=== PATIENT | male | born 1975 | race Two or more races ===

== ENCOUNTER 2017-06-02 12:25 | Inpatient (IN) | payer BC ==
[~2017-06-02] VITALS: Ht 177.8 cm; Wt 73.0 kg
--- NOTE | 2017-06-02 13:51 | History & Physical ---
History and Physical History & Physicial Dictated for Int Med -Dr Vázquez no. [id number] ELISSA CAMP Jun 02, 2017 13:51
[2017-06-02] MEDS ORDERED: LORazepam Inj 2mg/ml 1ml IV PRN ×2 (15:00→19:00)
[2017-06-02] MEDS ORDERED: NS w/KCl 20mEq 1,000 ML IV SCH (15:00)
[2017-06-02 15:22] LABS: BASOPHILS % (AUTO) 0.7 % (0.0-2.0); EOSINOPHILS % (AUTO) 0.6 % (0.0-3.0); LYMPHOCYTES % (AUTO) 11.3 % (20.0-45.0); MEAN CORPUSCULAR HEMOGLOBIN 32.9 PG (27.0-31.0); MEAN CORPUSCULAR HGB CONC 35.9 G/DL (32.0-36.0); MEAN CORPUSCULAR VOLUME 92 FL (80-99); MEAN PLATELET VOLUME 8.1 FL (6.5-10.1); MONOCYTES % (AUTO) 8.7 % (1.0-10.0); NEUTROPHILS % (AUTO) 78.7 % (45.0-75.0); PLATELET COUNT 212 K/UL (150-450); RED BLOOD COUNT 4.41 M/UL (4.70-6.10)
[2017-06-02 15:28] LABS: INR 1.2 (0.9-1.1); PROTHROMBIN TIME 12.1 SEC (9.30-11.50)
[2017-06-02 15:41] LABS: ALANINE AMINOTRANSFERASE 14 U/L (3-41); ALBUMIN/GLOBULIN RATIO 2.3 (1.0-2.7); ANION GAP 14 (5-15); ASPARTATE AMINO TRANSFERASE 29 U/L (5-40); CALCIUM 9.1 mg/dL (8.6-10.2); CARBON DIOXIDE 27 mEQ/L (20-30); CHLORIDE 94 mEQ/L (98-107); CREATININE 0.9 mg/dL (0.7-1.2); GLOMERULAR FILTRATION RATE > 60 mL/min (>60); HEMOLYSIS 5; POTASSIUM 4.5 mEQ/L (3.4-4.9); SODIUM 135 mEQ/L (135-145); TOTAL PROTEIN 6.3 g/dL (6.6-8.7)
[2017-06-02 16:31] LABS: BILIRUBIN,DIRECT 0.2 mg/dL (0.1-0.3)
[2017-06-02 16:46] VITALS: BP 125/74
[2017-06-02] MEDS: NS w/KCl 20mEq 1,000 ML IV SCH (17:39)
--- NOTE | 2017-06-02 18:46 | History and Physical Report ---
DATE OF ADMISSION: 06/02/2017 CHIEF COMPLAINT: The patient is a 42-year-old white male who presents with chief complaint of seizure. HISTORY OF PRESENT ILLNESS: The patient denies medical problems. The patient states he was on "bowel cleanse." The patient was drinking water with vitamins; no solid foods. The patient is interviewed in the presence of his significant other. According to the significant other, the patient had a seizure this morning about 3 a.m. It last about two minutes. It was generalized in nature. The patient bite the left side of his tongue and was bleeding. The patient initially presented to [facility] emergency room. The patient was transferred to [facility] for insurance purposes. The patient is admitted for new onset seizure and hyponatremia. REVIEW OF SYSTEMS: Constitutional: The patient denies weight loss or weight gain. The patient denies fever or chills. Heent: The patient denies ear or throat pain. The patient denies headache. Cardiovascular: The patient denies palpitations or chest pain. Chest: The patient denies wheezes or shortness of breath. Abdomen: The patient denies nausea, vomiting, diarrhea, or constipation. Genitourinary: The patient denies dysuria or increased frequency of urination. Neuromuscular: The patient complains of seizures as above. The patient denies generalized weakness. PAST MEDICAL HISTORY: The patient denies. PAST SURGICAL HISTORY: The patient denies. CURRENT MEDICATIONS: Other than colon cleanse as above, the patient denies. ALLERGIES: No known drug allergies. SOCIAL HISTORY: The patient is single however has a significant other. The patient works in the entertainment field. The patient denies tobacco use having quit in December 2016. The patient admits to occasional alcohol use. FAMILY HISTORY: Negative for diabetes or coronary artery disease. PHYSICAL EXAMINATION: VITAL SIGNS: Temperature 96.6, respirations 20, pulse 75, blood pressure 120 to 143 over 65 to 73. GENERAL: The patient is well-developed and well-nourished white male, in no apparent distress. HEENT: Eyes, pupils are equal and responsive to light and accommodation. Extraocular movements are intact. NECK: Supple. No lymphadenopathy. CHEST: Lungs are clear to auscultation bilaterally without wheezes or rales. CARDIOVASCULAR: Regular rate. S1 and S2 are normal without murmurs, rubs, or gallops. ABDOMEN: Soft, nontender, and nondistended. Positive bowel sounds. No evidence of hepatosplenomegaly. Currently, no rebound or guarding noted. EXTREMITIES: Negative for clubbing, cyanosis, or edema. RECTAL/GENITAL: Refused. NEUROLOGIC: Cranial nerves II to XII are grossly intact without focal deficits. Motor strength is 5/5 bilaterally. Deep tendon reflexes 2+ plantar. LABORATORY STUDIES: From [place], WBC 5.9, hemoglobin 14.0, hematocrit 39.3, platelets 190,000. Sodium 122 (decreased), potassium 3.2( decreased) chloride 88, CO2 21, BUN 7, creatinine 1.07, glucose 131. Total bilirubin slightly elevated at 1.7. The rest laboratory studies within normal limits. A CT scan without contrast, revealed 1.5 centimeter lobular focus of mildly increased density which is consistent with meningioma. An MRI of the brain was recommended. ASSESSMENT: This is a 42-year-old white male: 1. New onset seizure. 2. Hyponatremia. 3. Hypokalemia. TREATMENT: 1. Seizure. A Neurology consultation was obtained with Dr. Block. An EEG of the brain is pending. MRI of the brain is pending. We will follow recommendations of Neurology. 2. Hyponatremia/hypokalemia, the patient is currently receiving intravenous fluids. Yadiel Husain M.D. DR: Gay JOB#: [id number] CC: KAROLYN
[2017-06-02 20:24] VITALS: BP 140/79
[2017-06-02 22:28] LABS: APPEARANCE,URINE CLEAR; KETONES,URINE 2+ (NEGATIVE); LEUKOCYTE ESTERASE ,URINE NEGATIVE (NEGATIVE); NITRITE,URINE NEGATIVE (NEGATIVE); PH,URINE 7 (4.5-8.0); PROTEIN,URINE NEGATIVE (NEGATIVE); UROBILINOGEN,URINE NORMAL MG/DL (0.0-1.0)
[2017-06-02 23:54] VITALS: BP 114/71
[2017-06-03 04:00] VITALS: BP 119/79
[2017-06-03] MEDS: NS w/KCl 20mEq 1,000 ML IV SCH (07:08)
[2017-06-03 07:11] LABS: ANION GAP 14 (5-15); BASOPHILS % (AUTO) 0.9 % (0.0-2.0); CALCIUM 8.8 mg/dL (8.6-10.2); CARBON DIOXIDE 24 mEQ/L (20-30); CHLORIDE 98 mEQ/L (98-107); CREATININE 0.9 mg/dL (0.7-1.2); GLOMERULAR FILTRATION RATE > 60 mL/min (>60); HEMOLYSIS 6; LYMPHOCYTES % (AUTO) 30.3 % (20.0-45.0); MEAN CORPUSCULAR HEMOGLOBIN 33.4 PG (27.0-31.0); MEAN CORPUSCULAR HGB CONC 36.2 G/DL (32.0-36.0); MEAN CORPUSCULAR VOLUME 92 FL (80-99); MEAN PLATELET VOLUME 8.3 FL (6.5-10.1); MONOCYTES % (AUTO) 11.6 % (1.0-10.0); NEUTROPHILS % (AUTO) 55.3 % (45.0-75.0); PLATELET COUNT 187 K/UL (150-450); POTASSIUM 4.2 mEQ/L (3.4-4.9); RED CELL DISTRIBUTION WIDTH 10.2 % (11.6-14.8); SODIUM 136 mEQ/L (135-145); WHITE BLOOD COUNT 6.2 K/UL (4.8-10.8)
[2017-06-03 07:15] LABS: PHOSPHORUS 3.3 mg/dL (2.5-4.8)
[2017-06-03 08:06] VITALS: BP 123/68
--- NOTE | 2017-06-03 08:50 | Internal Med Progress Note ---
Subjective Date of Service: Jun 03, 2017 Physician Name Yadiel Camp Attending Physician Nilson Vázquez MD Current Medications Medications (Trade) Dose Ordered Sig/Brian Route PRN Reason Start Time Stop Time Status Last Admin Dose Admin Acetaminophen (Tylenol) 650 mg Q4H PRN ORAL Mild Pain/Temp > 100.5 06/02/17 17:45 07/02/17 17:44 Levetiracetam (Keppra) 500 mg Q12HR ORAL 06/02/17 21:00 07/02/17 20:59 06/02/17 22:19 Lorazepam (Ativan 2mg/ml 1ml) 2 mg Q4H PRN IV For Seizures 06/02/17 19:00 06/09/17 18:59 Sodium Chloride (NS w/KCl 20mEq) 1,000 ml @ 75 mls/hr [id number] IV 06/02/17 17:30 07/02/17 17:29 06/03/17 07:08 Temazepam (Restoril) 15 mg HSPRN PRN ORAL Insomnia 06/03/17 00:30 06/10/17 00:29 06/03/17 00:37 Allergies: Coded Allergies: No Known Allergies (Unverified , 06/02/17) ROS Limited/Unobtainable: No Constitutional: Reports: no symptoms HEENT: Reports: no symptoms Cardiovascular: Reports: no symptoms Respiratory: Reports: no symptoms Gastrointestinal/Abdominal: Reports: no symptoms Genitourinary: Reports: no symptoms Neurologic/Psychiatric: Reports: no symptoms Subjective 42 YO M admitted with new onset seizure. Await MRI brain and EEG. Await neurology consult. Cover for Int Med-Dr Vázquez. Objective Last Vital Signs Date Time Temp Pulse Resp B/P Pulse Ox O2 Delivery O2 Flow Rate FiO2 06/03/17 08:06 97.7 65 20 123/68 100 Room Air General Appearance: WD/WN, no apparent distress, alert EENT: PERRL/EOMI, normal ENT inspection Neck: non-tender, normal alignment, supple Cardiovascular: normal peripheral pulses, normal rate, regular rhythm, no gallop/murmur, no JVD Respiratory/Chest: chest wall non-tender, lungs clear, normal breath sounds, no respiratory distress, no accessory muscle use Abdomen: normal bowel sounds, non tender, soft, no organomegaly, no mass Extremities: normal range of motion, non-tender Neurologic: water/wastewater engineer II-XII grossly normal, no motor/sensory deficits, alert, oriented x 3, responsive Skin: normal pigmentation, warm/dry Laboratory Tests Test 06/02/17 14:50 06/02/17 19:51 06/03/17 04:55 White Blood Count 10.0 K/UL (4.8-10.8) 6.2 K/UL (4.8-10.8) Red Blood Count 4.41 M/UL (4.70-6.10) L 4.30 M/UL (4.70-6.10) L Hemoglobin 14.5 G/DL (14.2-18.0) 14.4 G/DL (14.2-18.0) Hematocrit 40.4 % (42.0-52.0) L 39.8 % (42.0-52.0) L Mean Corpuscular Volume 92 FL (80-99) 92 FL (80-99) Mean Corpuscular Hemoglobin 32.9 PG (27.0-31.0) H 33.4 PG (27.0-31.0) H Mean Corpuscular Hemoglobin Concent 35.9 G/DL (32.0-36.0) 36.2 G/DL (32.0-36.0) H Red Cell Distribution Width 10.0 % (11.6-14.8) L 10.2 % (11.6-14.8) L Platelet Count 212 K/UL (150-450) 187 K/UL (150-450) Mean Platelet Volume 8.1 FL (6.5-10.1) 8.3 FL (6.5-10.1) Neutrophils (%) (Auto) 78.7 % (45.0-75.0) H 55.3 % (45.0-75.0) Lymphocytes (%) (Auto) 11.3 % (20.0-45.0) L 30.3 % (20.0-45.0) Monocytes (%) (Auto) 8.7 % (1.0-10.0) 11.6 % (1.0-10.0) H Eosinophils (%) (Auto) 0.6 % (0.0-3.0) 2.0 % (0.0-3.0) Basophils (%) (Auto) 0.7 % (0.0-2.0) 0.9 % (0.0-2.0) Prothrombin Time 12.1 SEC (9.30-11.50) H Prothromb Time International Ratio 1.2 (0.9-1.1) H Activated Partial Thromboplast Time 26 SEC (23-33) Sodium Level 135 mEQ/L (135-145) 136 mEQ/L (135-145) Potassium Level 4.5 mEQ/L (3.4-4.9) 4.2 mEQ/L (3.4-4.9) Chloride Level 94 mEQ/L (98-107) L 98 mEQ/L (98-107) Carbon Dioxide Level 27 mEQ/L (20-30) 24 mEQ/L (20-30) Anion Gap 14 (5-15) 14 (5-15) Blood Urea Nitrogen 6 mg/dL (7-23) L 5 mg/dL (7-23) L Creatinine 0.9 mg/dL (0.7-1.2) 0.9 mg/dL (0.7-1.2) Estimat Glomerular Filtration Rate > 60 mL/min (>60) > 60 mL/min (>60) Glucose Level 93 mg/dL (74-106) 99 mg/dL (74-106) Calcium Level 9.1 mg/dL (8.6-10.2) 8.8 mg/dL (8.6-10.2) Total Bilirubin 1.2 mg/dL (0.0-1.2) Direct Bilirubin 0.2 mg/dL (0.1-0.3) Aspartate Amino Transf (AST/SGOT) 29 U/L (5-40) Alanine Aminotransferase (ALT/SGPT) 14 U/L (3-41) Alkaline Phosphatase 49 U/L (40-129) Total Protein 6.3 g/dL (6.6-8.7) L Albumin 4.4 g/dL (3.5-5.2) Globulin 1.9 g/dL Albumin/Globulin Ratio 2.3 (1.0-2.7) Urine Color Pale yellow Urine Appearance Clear Urine pH 7 (4.5-8.0) Urine Specific [place] 1.005 (1.005-1.035) Urine Protein Negative (NEGATIVE) Urine Glucose (UA) Negative (NEGATIVE) Urine Ketones 2+ (NEGATIVE) H Urine Occult Blood Negative (NEGATIVE) Urine Nitrite Negative (NEGATIVE) Urine Bilirubin Negative (NEGATIVE) Urine Urobilinogen Normal MG/DL (0.0-1.0) Urine Leukocyte Esterase Negative (NEGATIVE) Phosphorus Level 3.3 mg/dL (2.5-4.8) Magnesium Level 2.0 mg/dL (1.7-2.5) Intake and Output 06/02/17 06/03/17 19:00 07:00 Intake Total 435 ml 525 ml Balance 435 ml 525 ml Intake Oral 360 ml IV Total 75 ml 525 ml # Voids 2 2 Assessment/Plan Problem List: (1) Hypokalemia Assessment & Plan: Resolved on IV fluid (2) Hyponatremia Assessment & Plan: Resolved (3) New onset seizure Assessment & Plan: Await neurology consult. Await MRI of brain-possible meningioma on CT from [place]. Await EEG. Cont Keppra Status: progressing YADIEL CAMP Jun 03, 2017 08:50
--- NOTE | 2017-06-03 09:08 | Diagnostic Imaging Report ---
Indication: Cough, seizure Technique: Single portable AP view of the chest. Findings: Comparison: None. The bones and extra pulmonary soft tissues, cardiomediastinal silhouette, pulmonary vasculature and parenchyma, and pleural surfaces are unremarkable. IMPRESSION: Negative portable AP chest.
--- NOTE | 2017-06-03 10:50 | Diagnostic Imaging Report ---
Indications: Seizures Technique: Sagittal and axial T1 weighted fast spin-echo, coronal and axial T2-weighted FLAIR, coronal fast spoiled gradient cordon, axial T2-weighted fat saturated fast spin echo, T2*-weighted gradient echo, and diffusion sequences of the brain were performed prior to IV gadolinium administration. Axial and coronal T1 weighted fast spin-echo, coronal fast spoiled gradient cordon sequences were performed following IV gadolinium administration. Findings: Comparison: None 17 x 15 x 14 mm sharply circumscribed, mildly lobulated mass is present in the posterior medial periphery of the right temporal lobe. It is mildly hypointense on T1-weighted images, centrally hyperintense with a signal void are on T2-weighted images, it demonstrates significant susceptibility artifact on gradient echo images, and demonstrates foci of enhancement on postgadolinium images. Some of these enhancing foci appear vascular. Minimal if any surrounding edema is present. No associated restricted diffusion. No enlarged feeding artery demonstrated. No evidence of additional mass or hemorrhage, other signal abnormality, mass effect, midline shift, hydrocephalus, or increased intracranial pressure. No restricted diffusion. No additional abnormal enhancement. Central vascular flow voids preserved. Mucoperiosteal thickening scattered throughout paranasal sinuses with small polypoid lesion in left maxillary sinus. IMPRESSION: 1.7 cm mass in right temporal lobe with evidence of previous hemorrhage, foci of enhancement. Underlying vascular malformation, particularly cavernous hemangioma must be considered. Neoplasm significantly less likely.
[2017-06-03 11:20] VITALS: BP 132/71
--- NOTE | 2017-06-03 12:12 | Neurology Progress Note ---
Interim History Interim History ROS Limited/Unobtainable: No Objective Physical Exam Last Vital Signs Date Time Temp Pulse Resp B/P Pulse Ox O2 Delivery O2 Flow Rate FiO2 06/03/17 11:20 97.5 54 20 132/71 100 Room Air Laboratory Tests Test 06/02/17 14:50 06/02/17 19:51 06/03/17 04:55 White Blood Count 10.0 K/UL (4.8-10.8) 6.2 K/UL (4.8-10.8) Red Blood Count 4.41 M/UL (4.70-6.10) L 4.30 M/UL (4.70-6.10) L Hemoglobin 14.5 G/DL (14.2-18.0) 14.4 G/DL (14.2-18.0) Hematocrit 40.4 % (42.0-52.0) L 39.8 % (42.0-52.0) L Mean Corpuscular Volume 92 FL (80-99) 92 FL (80-99) Mean Corpuscular Hemoglobin 32.9 PG (27.0-31.0) H 33.4 PG (27.0-31.0) H Mean Corpuscular Hemoglobin Concent 35.9 G/DL (32.0-36.0) 36.2 G/DL (32.0-36.0) H Red Cell Distribution Width 10.0 % (11.6-14.8) L 10.2 % (11.6-14.8) L Platelet Count 212 K/UL (150-450) 187 K/UL (150-450) Mean Platelet Volume 8.1 FL (6.5-10.1) 8.3 FL (6.5-10.1) Neutrophils (%) (Auto) 78.7 % (45.0-75.0) H 55.3 % (45.0-75.0) Lymphocytes (%) (Auto) 11.3 % (20.0-45.0) L 30.3 % (20.0-45.0) Monocytes (%) (Auto) 8.7 % (1.0-10.0) 11.6 % (1.0-10.0) H Eosinophils (%) (Auto) 0.6 % (0.0-3.0) 2.0 % (0.0-3.0) Basophils (%) (Auto) 0.7 % (0.0-2.0) 0.9 % (0.0-2.0) Prothrombin Time 12.1 SEC (9.30-11.50) H Prothromb Time International Ratio 1.2 (0.9-1.1) H Activated Partial Thromboplast Time 26 SEC (23-33) Sodium Level 135 mEQ/L (135-145) 136 mEQ/L (135-145) Potassium Level 4.5 mEQ/L (3.4-4.9) 4.2 mEQ/L (3.4-4.9) Chloride Level 94 mEQ/L (98-107) L 98 mEQ/L (98-107) Carbon Dioxide Level 27 mEQ/L (20-30) 24 mEQ/L (20-30) Anion Gap 14 (5-15) 14 (5-15) Blood Urea Nitrogen 6 mg/dL (7-23) L 5 mg/dL (7-23) L Creatinine 0.9 mg/dL (0.7-1.2) 0.9 mg/dL (0.7-1.2) Estimat Glomerular Filtration Rate > 60 mL/min (>60) > 60 mL/min (>60) Glucose Level 93 mg/dL (74-106) 99 mg/dL (74-106) Calcium Level 9.1 mg/dL (8.6-10.2) 8.8 mg/dL (8.6-10.2) Total Bilirubin 1.2 mg/dL (0.0-1.2) Direct Bilirubin 0.2 mg/dL (0.1-0.3) Aspartate Amino Transf (AST/SGOT) 29 U/L (5-40) Alanine Aminotransferase (ALT/SGPT) 14 U/L (3-41) Alkaline Phosphatase 49 U/L (40-129) Total Protein 6.3 g/dL (6.6-8.7) L Albumin 4.4 g/dL (3.5-5.2) Globulin 1.9 g/dL Albumin/Globulin Ratio 2.3 (1.0-2.7) Urine Color Pale yellow Urine Appearance Clear Urine pH 7 (4.5-8.0) Urine Specific [place] 1.005 (1.005-1.035) Urine Protein Negative (NEGATIVE) Urine Glucose (UA) Negative (NEGATIVE) Urine Ketones 2+ (NEGATIVE) H Urine Occult Blood Negative (NEGATIVE) Urine Nitrite Negative (NEGATIVE) Urine Bilirubin Negative (NEGATIVE) Urine Urobilinogen Normal MG/DL (0.0-1.0) Urine Leukocyte Esterase Negative (NEGATIVE) Phosphorus Level 3.3 mg/dL (2.5-4.8) Magnesium Level 2.0 mg/dL (1.7-2.5) Impression/Recommendations Status: progressing Recommendations #[id number] MARICEL TURCIOS Jun 03, 2017 12:12
--- NOTE | 2017-06-03 12:26 | Consultation ---
History of Present Illness General Date patient seen: Jun 03, 2017 Chief Complaint: seizures Reason for Consultation: inpatient management Present Illness HPI 42 year old male without any PMHx was taken to [facility] with CC of new onset seizures. Pt was transferred to [facility] for further treatment. Allergies: Coded Allergies: No Known Allergies (Unverified , 06/02/17) Patient History Healthcare decision maker Resuscitation status Full Code Advanced Directive on File Review of Systems Constitutional: Reports: no symptoms All Other Systems: negative except mentioned in HPI Physical Exam General Appearance: WD/WN Lines, tubes and drains: peripheral, PICC HEENT: normocephalic, atraumatic Respiratory/Chest: chest wall non-tender, lungs clear Breasts: no masses Cardiovascular/Chest: normal peripheral pulses Abdomen: normal bowel sounds Genitourinary/Rectal: normal genital exam Last 24 Hour Vital Signs Date Time Temp Pulse Resp B/P Pulse Ox O2 Delivery O2 Flow Rate FiO2 06/03/17 11:20 97.5 54 20 132/71 100 Room Air 06/03/17 08:06 97.7 65 20 123/68 100 Room Air 06/03/17 04:00 98.2 80 21 119/79 93 Room Air 06/03/17 04:00 57 06/03/17 00:00 64 06/02/17 23:54 98.5 77 20 114/71 Room Air 06/02/17 20:24 98.6 81 21 140/79 93 Room Air 06/02/17 20:00 67 06/02/17 16:46 97.5 77 20 125/74 98 06/02/17 15:23 80 06/02/17 12:45 98.3 70 20 125/52 Intake and Output 06/02/17 06/03/17 19:00 07:00 Intake Total 435 ml 525 ml Balance 435 ml 525 ml Intake Oral 360 ml IV Total 75 ml 525 ml # Voids 2 2 Laboratory Tests Test 06/02/17 14:50 06/02/17 19:51 06/03/17 04:55 White Blood Count 10.0 K/UL (4.8-10.8) 6.2 K/UL (4.8-10.8) Red Blood Count 4.41 M/UL (4.70-6.10) L 4.30 M/UL (4.70-6.10) L Hemoglobin 14.5 G/DL (14.2-18.0) 14.4 G/DL (14.2-18.0) Hematocrit 40.4 % (42.0-52.0) L 39.8 % (42.0-52.0) L Mean Corpuscular Volume 92 FL (80-99) 92 FL (80-99) Mean Corpuscular Hemoglobin 32.9 PG (27.0-31.0) H 33.4 PG (27.0-31.0) H Mean Corpuscular Hemoglobin Concent 35.9 G/DL (32.0-36.0) 36.2 G/DL (32.0-36.0) H Red Cell Distribution Width 10.0 % (11.6-14.8) L 10.2 % (11.6-14.8) L Platelet Count 212 K/UL (150-450) 187 K/UL (150-450) Mean Platelet Volume 8.1 FL (6.5-10.1) 8.3 FL (6.5-10.1) Neutrophils (%) (Auto) 78.7 % (45.0-75.0) H 55.3 % (45.0-75.0) Lymphocytes (%) (Auto) 11.3 % (20.0-45.0) L 30.3 % (20.0-45.0) Monocytes (%) (Auto) 8.7 % (1.0-10.0) 11.6 % (1.0-10.0) H Eosinophils (%) (Auto) 0.6 % (0.0-3.0) 2.0 % (0.0-3.0) Basophils (%) (Auto) 0.7 % (0.0-2.0) 0.9 % (0.0-2.0) Prothrombin Time 12.1 SEC (9.30-11.50) H Prothromb Time International Ratio 1.2 (0.9-1.1) H Activated Partial Thromboplast Time 26 SEC (23-33) Sodium Level 135 mEQ/L (135-145) 136 mEQ/L (135-145) Potassium Level 4.5 mEQ/L (3.4-4.9) 4.2 mEQ/L (3.4-4.9) Chloride Level 94 mEQ/L (98-107) L 98 mEQ/L (98-107) Carbon Dioxide Level 27 mEQ/L (20-30) 24 mEQ/L (20-30) Anion Gap 14 (5-15) 14 (5-15) Blood Urea Nitrogen 6 mg/dL (7-23) L 5 mg/dL (7-23) L Creatinine 0.9 mg/dL (0.7-1.2) 0.9 mg/dL (0.7-1.2) Estimat Glomerular Filtration Rate > 60 mL/min (>60) > 60 mL/min (>60) Glucose Level 93 mg/dL (74-106) 99 mg/dL (74-106) Calcium Level 9.1 mg/dL (8.6-10.2) 8.8 mg/dL (8.6-10.2) Total Bilirubin 1.2 mg/dL (0.0-1.2) Direct Bilirubin 0.2 mg/dL (0.1-0.3) Aspartate Amino Transf (AST/SGOT) 29 U/L (5-40) Alanine Aminotransferase (ALT/SGPT) 14 U/L (3-41) Alkaline Phosphatase 49 U/L (40-129) Total Protein 6.3 g/dL (6.6-8.7) L Albumin 4.4 g/dL (3.5-5.2) Globulin 1.9 g/dL Albumin/Globulin Ratio 2.3 (1.0-2.7) Urine Color Pale yellow Urine Appearance Clear Urine pH 7 (4.5-8.0) Urine Specific [place] 1.005 (1.005-1.035) Urine Protein Negative (NEGATIVE) Urine Glucose (UA) Negative (NEGATIVE) Urine Ketones 2+ (NEGATIVE) H Urine Occult Blood Negative (NEGATIVE) Urine Nitrite Negative (NEGATIVE) Urine Bilirubin Negative (NEGATIVE) Urine Urobilinogen Normal MG/DL (0.0-1.0) Urine Leukocyte Esterase Negative (NEGATIVE) Phosphorus Level 3.3 mg/dL (2.5-4.8) Magnesium Level 2.0 mg/dL (1.7-2.5) Height (Feet): 5 Height (Inches): 10.00 Weight (Pounds): 161 Medications Current Medications Medications (Trade) Dose Ordered Sig/Brian Route PRN Reason Start Time Stop Time Status Last Admin Dose Admin Acetaminophen (Tylenol) 650 mg Q4H PRN ORAL Mild Pain/Temp > 100.5 06/02/17 17:45 07/02/17 17:44 Levetiracetam (Keppra) 500 mg Q12HR ORAL 06/02/17 21:00 07/02/17 20:59 06/03/17 09:36 Lorazepam (Ativan 2mg/ml 1ml) 2 mg Q4H PRN IV For Seizures 06/02/17 19:00 06/09/17 18:59 Sodium Chloride (NS w/KCl 20mEq) 1,000 ml @ 75 mls/hr [id number] IV 06/02/17 17:30 07/02/17 17:29 06/03/17 07:08 Temazepam (Restoril) 15 mg HSPRN PRN ORAL Insomnia 06/03/17 00:30 06/10/17 00:29 06/03/17 00:37 Assessment/Plan Problem List: (1) New onset seizure ICD Codes: R56.9 - Unspecified convulsions SNOMED: 47912706 (2) Hyponatremia ICD Codes: E87.1 - Hypo-osmolality and hyponatremia SNOMED: 85846807 (3) Hypokalemia ICD Codes: E87.6 - Hypokalemia SNOMED: 47260086 Assessment/Plan w/u in progress Neuro evaluation EEG anti-seizure tads MICHELLE GHOSH Jun 03, 2017 12:26
[2017-06-03 12:58] LABS: BILIRUBIN,DIRECT 0.1 mg/dL (0.1-0.3); CHOLESTEROL/HDL RATIO 3.6 (3.3-4.4); TOTAL PROTEIN 5.9 g/dL (6.6-8.7)
[2017-06-03 15:27] VITALS: BP 116/62
--- NOTE | 2017-06-03 20:45 | Consultation ---
DATE OF CONSULTATION: 06/03/2017 NEUROLOGICAL CONSULTATION REQUESTING PHYSICIAN: Nilson Vázquez M.D. HISTORY OF PRESENT ILLNESS: The patient is a 42-year-old man seen in neurological consultation to evaluate the new onset of seizure activity. According to the patient, for the last five days prior to admission, he was in a "cleansing diet", which consists about 1.5 liters of water and mixed with some herbal powder daily. While asleep next to his girlfriend, he developed generalized clonic-tonic event with tongue biting. Paramedics were called to the scene. He was then taken to [facility] emergency room where he woke up. His blood pressure was stable at 120/65. He was afebrile. He was back to baseline, awake, alert and fully oriented. Her initial laboratory work included normal CBC studies. Electrolyte panel with sodium 122, potassium 3.3, chloride 88, and anion gap of 13. Total bilirubin 1.7. Otherwise normal study. CAT scan of the brain revealed focal high-density area in the right medial temporal lobe along with the , possible meningioma, recommended MRI with contrast for confirmation. The patient was transferred to this facility for further assessment and treatment. Laboratory work on admission revealed a normal CBC, coagulation panel with INR 1.2. Chemistry panel with sodium 135, chloride 94, total bilirubin of 6.3, otherwise normal study. Urinalysis, 2+ ketones. Coagulation panel with INR 1.2. His vital signs remained stable. He was afebrile. Chest x-ray, normal study. MRI of the brain with and without contrast was obtained, this revealed 17 x 15 x 14 millimeters sharply circumscribed mildly lobulated mass in the posterior medial periphery of the right temporal lobe, mildly hypointense and centrally hyperintense, significant susceptibility artifact, foci of enhancement on post gadolinium images, some of enhancement appears to be vascular. No enlarged feeding artery noted. Central vascular flow void was presented with final impression of 1.7 centimeters mass in the right temporal lobe with evidence of previous hemorrhage with fossa of enhancement. Underlying vascular malformation, particularly hemangioma to be considered, neoplasm significantly less likely. Since admission till present, there was no paroxysmal events noted. The patient back to his normal, feeling fairly well. He was started on Keppra 500 mg b.i.d., lorazepam p.r.n., temazepam at bedtime, and given normal saline supplements. PAST MEDICAL HISTORY: The patient denies any paroxysmal events in the past. He has no medical problems. He admits having occasional couple of times a year mild bifrontal dull headaches, responding to [id number] analgesics. ALLERGIES: None reported. SOCIAL HISTORY: He is single, actor. No alcohol. No drug abuse. Nonsmoker. Remained very healthy lifestyle with frequent yoga and gym. FAMILY HISTORY: Noncontributory. There is no family members with seizure disorder. REVIEW OF SYSTEMS: A 14-point review of symptom was negative except those in history of present Illness. PHYSICAL EXAMINATION: GENERAL: The patient is well-developed and well-nourished, healthy appearing man, not in acute distress. VITAL SIGNS: His vital signs are stable, blood pressure was 145/74, but they were noted some fluctuation 140/79, temperature 98.6 degrees and heart rate of 81. HEENT: Head, normocephalic. No evidence of trauma. Eyes, ears, and throat are clear. NECK: Supple. No meningeal signs. MUSCULOSKELETAL: Unremarkable. There is no deformities. Peripheral pulses 1+, symmetric. MENTAL STATUS: He is fully alert and oriented x3. No evidence of aphasia. No apraxia. Cognition is normal. CRANIAL NERVE II: Pupils, both responding to light and accommodation. Extraocular movement intact. No nystagmus. CRANIAL NERVE V: Normal corneal responses. CRANIAL NERVE VII: No facial asymmetry. CRANIAL NERVE VIII: Normal hearing. CRANIAL NERVE IX THROUGH XII: With normal limits. MOTOR EXAMINATION: Normal muscle tone. Strength 5/5 in all extremities. No involuntary movement. Deep reflexes 1+ symmetric with downgoing toes on both sides. SENSORY EXAM: Normal to pinprick and light touch. Gait is stable. IMPRESSION: History of single generalized clonic-tonic seizure episode, most likely related to acute hyponatremia in the setting of right temporal lobe mass lesion. RECOMMENDATION: 1. Continue with Keppra [address] angiogram of the brain. 3. Electroencephalogram. 4. DMV notified, no driving. 5. Discussed all the risk factors for seizure exacerbation. 6. In presence of focal mass lesion in the [place] area, the patient remained with high risk of recurrent seizures and for this reason, he should be considered as a chronic seizure disorder, maintained on anticonvulsants and have a driving precautions. 7. I discussed the issues in detail with the patient who concurrent. Thank you for allowing me to see this interesting patient in neurological consultation. Richardson Block M.D. DR: ANCELMO JOB#: [id number] CC:
--- NOTE | 2017-06-04 06:57 | Diagnostic Imaging Report ---
Indications: Altered mental status, seizures, right temporal lobe mass Technique: Continuous helical CT imaging of the brain was performed with automatic exposure control both before and after intravenous administration of nonionic iodine contrast, on a Siemens sensation [address] scanner. Axial and coronal images were reconstructed at 5 mm slice thickness and interval. CTDI volume(s): 70x2, 17, 132 mGy Total DLP: 2845 mGy-cm Findings: Mixed attenuation mass is vaguely identifiable within the posterior medial aspect of the right temporal lobe, approximately 2 cm diameter. It is mostly subtly increased attenuation relative to surrounding brain parenchyma with internal foci of decreased attenuation. No significant surrounding edema. Postcontrast images demonstrate small linear and nodular foci of enhancement within the mass. No identifiable enlarged vessels.. No evidence of additional mass or hemorrhage, other attenuation abnormality, mass effect, midline shift, hydrocephalus or increased intracranial pressure. Normal vascular enhancement. No other abnormal enhancement. Bone window images are unremarkable. IMPRESSION: Right temporal lobe mass as described. Precontrast increased attenuation suggest blood elements. Favor vascular malformation. Mass vascularity not adequately assessed as examination was not performed as a CT angiogram. The CT scanner at [facility] is accredited by the [employer] and the scans are performed using protocols designed to limit radiation exposure to as low as reasonably achievable to attain images of sufficient resolution adequate for diagnostic evaluation.
--- NOTE | 2017-06-05 20:00 | Discharge Summary ---
Discharge Summary Hospital Course Date of Admission Jun 02, 2017 at 12:25 Date of Discharge Jun 03, 2017 at 18:37 Admitting Diagnosis NORMA Montgomery is a 42 year old male who was admitted on Jun 02, 2017 at 12:25 for Seizure Disorder Hospital Course [id number] Discharge Discharge Disposition Patient was discharged against medical advise Discharge Diagnoses: Nickie Jim NP Jun 05, 2017 19:59
--- NOTE | 2017-06-06 00:45 | Discharge Summary 2 SIG ---
DATE OF ADMISSION: 06/02/2017 DATE OF DISCHARGE: 06/03/2017 CONSULTANTS: 1. Richardson Block M.D. 2. Viraj Maloney M.D. BRIEF HOSPITAL COURSE: The patient is a 42-year-old male who denied medical problems, who stated that he was on a bowel cleanse and was drinking water with vitamins but no solid foods. The patient had a seizure episode, bit left side of his tongue and was bleeding. He initially presented to [facility], and was transferred to [facility] for insurance purposes. He was admitted for new onset seizure and hyponatremia. CAT scan done at [place] [facility] without contrast revealed a 1.5 cm lobular focus of mildly increased density consistent with meningioma. He was seen by Dr. Block. MRI of the brain with and without contrast revealed 17 x 15 x 14 mm, sharply circumscribed, mildly lobulated mass in the posterior medial periphery of the right temporal lobe. He was started on Keppra 500 mg b.i.d. and lorazepam p.r.n., and was given IV hydration. He was advised against driving. [employer] Representative was called in to inform [employer]. However, full treatment was not carried out as the patient signed out against medical advice. FINAL DIAGNOSES: 1. Single generalized tonic-clonic seizure episode, most likely related to acute hyponatremia in the setting of a right temporal lobe mass lesion. 2. Hypokalemia. 3. Hyponatremia. DISPOSITION: The patient left AMA. Yadiel Husain M.D. I have been assigned to dictate discharge summary on this account and I was not involved in the patient's management. Nickie Jim N.P. DR: ASHISH JOB#: [id number] CC: KAROLYN
== END 2017-06-03 18:37 | disposition left against medical advice (07) | DRG 101 ==
LOC: 2W 12:25 → 2E 17:15
DX: G40.409 Other generalized epilepsy and epileptic syndromes, not intractable, without status epilepticus (principal); E87.1 Hypo-osmolality and hyponatremia; E87.6 Hypokalemia; G93.9 Disorder of brain, unspecified
CPT/HCPCS: 36415; 70460; 70553; 71010; 80048; 80053; 80061; 80076; 80299; 81003; 82248; 83735; 84100; 85025; 85610; 85730; A9585

== ENCOUNTER 2017-06-07 14:52 | Outpatient (CLI) | payer BC ==
--- NOTE | 2017-06-11 16:46 | Electroencephalogram ---
DATE OF PROCEDURE: 06/07/2017 ELECTROENCEPHALOGRAPHY REPORT HISTORY: The patient is a 42-year-old man with a history of transient loss of consciousness. EEG was requested to assess presence of epileptogenic focus. TECHNIQUE: EEG was done using 18 electrodes placed scalp to scalp, scalp to ear montages according to 10/20 [employer] System. During the recording, described as awake or drowsy, with good cooperation. Most wakeful portions of recording, the patient presented with well regulated medium voltage, 8 to 10 cycles per second, alpha activities with good response to physiological stimulation. Photic stimulation from 3 to 32 hertz was done, result no significant changes. Brief epochs of mild diffuse slowing theta range of 7-8 cycles noted corresponding to sleep stages. No asymmetry from [id number]. No spike or wave activities noted. IMPRESSION: Normal awake stage 1 sleep electroencephalogram with photic stimulation. COMMENT: Absence of paroxysmal event on a single recording does not rule out seizure disorder. Richardson Block M.D. DR: ANCELMO JOB#: [id number] CC:
== END 2017-06-07 16:52 | disposition home or self-care (01) ==
LOC: CAR 14:52
DX: G40.909 Epilepsy, unspecified, not intractable, without status epilepticus (principal)
CPT/HCPCS: 95819